=== PATIENT | male | born 1945 | race Caucasian/White ===

== ENCOUNTER 2021-02-23 08:07 | Day surgery (SDC) | payer OTHER, BC ==
[2021-02-20 14:55] VITALS: BMI 24.2
[2021-02-23 08:28] VITALS: TEMP 96.6
[2021-02-23 10:58] VITALS: BP 144/64; PULSE 56
== END 2021-02-23 10:40 | disposition home or self-care (01) ==
LOC: FASU-ENDO 08:07
PROVIDERS: ATTEND Internal Medicine Gastroenterology
PROC: 0DJD8ZZ Inspection of Lower Intestinal Tract, Via Natural or Artificial Opening Endoscopic (ICD-10-PCS; principal; 2021-02-23 09:38)
DX: Z12.11 Encounter for screening for malignant neoplasm of colon (principal)